=== PATIENT | female | born 1930 | race Caucasian/White ===

== ENCOUNTER → 2016-09-23 | Outpatient (CLI) | payer MEDICARE, BC ==
--- NOTE | 2016-09-23 14:58 | KCIC ---
AP pelvis with 2 views bilateral hip Indication: Left hip pain after fall Findings: The pelvis is intact. The ilioischial and iliopectineal lines are intact. The obturator rings are intact. The SI joints and pubic symphysis are normal with no diastases. The bilateral hips are intact with no evidence for femur fracture. There is no volume loss or sclerosis of the femoral head. Impression: No evidence for pelvic or bilateral hip fracture. Electronically signed by: Arnoldo Giraldo MD (09/23/2016 2:54 PM)
== END | disposition home or self-care (01) ==
LOC: KCIC 13:19
PROVIDERS: ATTEND Family Medicine
DX: M25.552 Pain in left hip (principal); Z91.81 History of falling
CPT/HCPCS: 73521